=== PATIENT | male | born 1980 | race Caucasian/White ===

== ENCOUNTER 2024-08-18 09:06 | Emergency (ER) | payer OTHER, SELFPAY ==
--- NOTE | ~2024-08-18 | XR_ITS ---
HISTORY: nail bed and left foot COMPARISON: None TECHNIQUE: 3 views of the left foot (with retained foreign body) FINDINGS: No acute fracture or dislocation is appreciated. Trace degenerative disease is noted. Incidental notation is made of os trigonum. Hallux valgus deformity is present, and as such, no acute fracture is present. The base of the fifth metatarsal is intact. No calcaneal spur is noted. Limited evaluation for the presence of soft tissue swelling. IMPRESSION: Hallux valgus deformity resulting in no acute fracture. Retained foreign body within the medial soft tissues of the great toe. Reviewed, dictated and finalized at location A.
[2024-08-18 09:09] VITALS: BP 120/92; PULSE 130; RESP 20; TEMP 36.6; O2SAT 98
--- OUTSIDE RECORDS SUMMARY | 2024-08-18 09:17 | XMS_ITS | Encounter Summary ---
Author Organization [employer] Address 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
--- OUTSIDE RECORDS SUMMARY | 2024-08-18 09:17 | XMS_ITS | Clinical Summary ---
Author Organization [facility] A Address [address] [place] [address] Care Team Providers Care Sliding Joint Maker Name Role Phone Mao Latif MD Primary Care Provider [phone] Allergies No known active allergies Medications No known medications Active Problems Problem Noted Date Diagnosed Date Annual physical exam 10/18/2019 Assessment & Plan (09/14/2023 2:41 PM CDT): Discussed lifestyle modifications, diet and exercise. Routine blood work ordered/reviewed today. Yearly vision and dental examinations. Assessment & Plan (09/09/2022 2:28 PM CDT): Discussed lifestyle modifications, diet and exercise. Routine blood work ordered/reviewed today. Yearly vision and dental examinations. Gastroenteritis 01/12/2015 Overview (05/15/2016): Gastroenteritis Asthma 06/25/2013 Overview (05/15/2016): ASTHMA NOS Immunizations Immunization Administration Dates Next Due Hep A, Adult 04/20/2009,03/13/2008 Influenza, Unspecified 09/14/2023(Deferr ed: Patient Refused),05/08/2022(Deferred: Patient Refused) Surgical History Surgery Date Site/Laterality Comments NO PAST SURGERIES Medical History Medical History Date Comments Asthma Asthma; Comments : SAB 01/12/2015 - Hx Other Medical Sutures on righ t index finger Family History Medical History Relation Name Comments Arrhythmia Father Other Father Alive and well; Throat cancer Maternal Grandmother Cancer -throat; Arrhythmia Mother Other Mother Alive and well; Heart disease Paternal Grandfather Heart disease; Colon cancer Paternal Grandmother Cancer -colon; Relation Name Status Comments Father Alive Maternal Grandmother Mother Alive Paternal Grandfather Paternal Grandmother Social History Tobacco Use Types Packs/Day Years Used Date Smoking Tobacco: Every Day Vaping Tobacco Cessation:Ready to Q uit: Not Asked; Counseling Given: Not Answered Alcohol Use Standard Drinks/Week Comments Yes 0 (1 standard drink = 0.6 oz pur e alcohol) PHQ-2 Answer Date Recorded PHQ-2 Total Score (If total score is 3 or more points, staff should administer the PHQ-9) 0 09/14/2023 Personal Safety Answer Date Recorded Getting School Help Needed Not on file 04/08 Sex and Gender Information Value Date Recorded Sex Assigned at Not on file 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 Gender Identity Not on file Sexual Orientation Not on file Obstetrics History Last Filed Vital Signs Vital Sign Reading Time Taken Comments Blood Pressure 108/88 09/14/2023 2:27 PM CDT Pulse 87 09/14/2023 2:27 PM CDT Temperature 36.9 C (98.5 F) 09/03/2022 4:54 PM CDT Respiratory Rate 16 09/14/2023 2:27 PM CDT Oxygen Saturation 98% 09/14/2023 2:27 PM CDT Inhaled Oxygen Concentration - - Weight 79.5 kg (175 lb 4.8 oz) 09/14/2023 2:27 P M CDT Height 175.3 cm (5' 9.02) 09/14/2023 2:27 PM CD T Body Mass Index 25.88 09/14/2023 2:27 PM CDT Plan of Treatment Health Maintenance Due Date Last Done Comments Hepatitis C Screening 1981 DTaP/Tdap/Td Vaccine (1 - Tdap) 1992 Varicella Vaccines (1 of 2 - 13+ 2-dose series) 1994 Hepatitis B Screening 07/05/1999 Pneumococcal vaccine <65 (1 of 2 - PCV) 2000 Depression Screening 09/13/2024 09/14/2023, 09/09/2022 Regular Well Visit/Exam 18-64 09/13/2024, 09/09/2022 Influenza Vaccine (Season Ended) 2024 HPV Vaccines Aged Out No longer eligi ble based on patient's age to complete this topic Insurance Care Teams Sliding Joint Maker Relationship Specialty Start Date End Date Mao Latif MD [address] [place] [address] [place] [address] PCP - General Family Medicine 09/09/22
--- OUTSIDE RECORDS SUMMARY | 2024-08-18 09:17 | XMS_ITS | Clinical Summary ---
Author Organization [facility] Address [address] [place] [address] Phone Care Team Providers Care Proofer Black And White Name Role Phone Provider, None Primary Care Provider Unavailabl e Allergies No known active allergies Medications No known medications Active Problems No known active problems Social History Tobacco Use Types Packs/Day Years Used Date Smoking Tobacco: Former Smokeless Tobacco: Never Alcohol Use Standard Drinks/Week Comments Yes 0 (1 standard drink = 0.6 oz pur e alcohol) socially Sex and Gender Information Value Date Recorded Sex Assigned at Not on file Legal Sex Male 11:43 AM CDT Gender Identity Not on file Sexual Orientation Not on file Last Filed Vital Signs Vital Sign Reading Time Taken Comments Blood Pressure 121/75 06/14/2018 11:55 AM CDT Pulse 75 06/14/2018 11:55 AM CDT Temperature 37.2 C (98.9 F) 06/14/2018 11:55 AM CDT Respiratory Rate 16 06/14/2018 11:55 AM CDT Oxygen Saturation 98% 06/14/2018 11:55 AM CDT Inhaled Oxygen Concentration - - Weight 77.1 kg (170 lb) 06/14/2018 11:55 AM CDT Height 175.3 cm (5' 9) 06/14/2018 11:55 AM CDT Body Mass Index 25.1 06/14/2018 11:55 AM CDT Plan of Treatment Health Maintenance Due Date Last Done Comments Hepatitis C Virus (HCV) Screening 1981 TdaP Immunization 1981 Human Papillomavirus (HPV) Immunization (1 - Male 3-dose series) 1996 Hepatitis B Immunization (1 of 3 - 19+ 3-dose series) 2000 SARS-COV-2 Immunization ( - ) 10/11/2023 Influenza Immunization (#1) 2024 Respiratory Syncytial Virus (RSV) Immunization (Adult) (1 - 1-dose 75+ series) 2056 Meningococcal Immunization (ACWY) Aged Out No longer eligible based on patient's age to complete this topic Pneumococcal Immunization Combined Aged Out No longer eligible based on patient's age to complete this topic Rotavirus Immunization Aged Out No lo nger eligible based on patient's age to complete this topic Insurance [facility] Care Teams Proofer Black And White Relationship Specialty Start Date End Date Provider, None [place] PCP - General 06/14/18
--- OUTSIDE RECORDS SUMMARY | 2024-08-18 09:17 | XMS_ITS | Encounter Summary ---
Author Organization [employer] Address 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
--- OUTSIDE RECORDS SUMMARY | 2024-08-18 09:17 | XMS_ITS | Clinical Summary ---
Author Organization [facility] [employer] Address [address] [place] [address] Care Team Providers Care Sulky Driver Name Role Phone Dixon Torres MD Primary Care Provider Source Comments [facility] [employer],non-owned Affiliates and Associated Physician Practices is amultiple site organization consisting of ambulatory clinics and hospital sitesin [place], [place], [place] and [place]. This disclosure is being madepursuant to the Care Everywhere program and may not contain all information available regarding this patient. Last updated 17.[facility] [employer] Allergies No known active allergies Medications * Be aware that medications may not be up to date on this document. Alwaysverify current medications with the patient. 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 Gender Identity Not on file Sexual Orientation Not on file Last Filed Vital Signs Vital Sign Reading Time Taken Comments Blood Pressure 110/74 11/16/2015 4:34 PM CDT Pulse 74 11/16/2015 4:34 PM CDT Temperature 36.9 C (98.4 F) 11/16/2015 4:34 PM CDT Respiratory Rate 16 11/16/2015 4:34 PM CDT Oxygen Saturation 98% 11/16/2015 4:34 PM CDT Inhaled Oxygen Concentration - - Weight 74.8 kg (165 lb) 11/16/2015 4:34 PM CDT Height 175.3 cm (5' 9) 11/16/2015 4:34 PM CDT Body Mass Index 24.37 11/16/2015 4:34 PM CDT Plan of Treatment Health Maintenance Due Date Last Done Comments LIPID TESTING 1981 HIV SCREENING 1996 HEPATITIS C SCREENING 06/30/1999 DTAP/TDAP/TD VACCINES (1 - Tdap) 2000 HEPATITIS B VACCINE (1 of 3 - 19+ 3-dose series) 2000 HPV VACCINE (1 - 3-dose SCDM series) 2008 COVID-19 VACCINE (1 - 2023-2 5 season) 2023 DEPRESSION SCREENING 02/10/2024 INFLUENZA VACCINE (#1) 2024 ZOSTER VACCINE (1 of 2) 07/05/2031 HIB VACCINE Aged Out No longer eligi ble based on patient's age to complete this topic MENINGOCOCCAL (Group B) VACC INE SHARED DECISION-MAKING Aged Out No longer eligibl e based on patient's age to complete this topic MENINGOCOCCAL GROUPS A/C/Y/W VACCINE Aged Out No longer eligible b ased on patient's age to complete this topic PNEUMOCOCCAL VACCINE Aged Out No long er eligible based on patient's age to complete this topic Insurance [facility] Care Teams Sulky Driver Relationship Specialty Start Date End Date Dixon Torres MD [address] [place] [address] [address] [place] [address] PCP - General Internal Medicine 11/16/15
--- OUTSIDE RECORDS SUMMARY | 2024-08-18 09:17 | XMS_ITS | Clinical Summary ---
Author Organization [facility] Address [address] [place] [address] Phone Care Team Providers Care Art Framing Manager Name Role Phone Unavailable Primary Care Provider Unavailabl e Allergies No known active allergies Medications HYDROcodone-tatiana taminophen (NORCO) 5-325 mg tabletIndicatio ns:Vasectomy evaluation Take 1 Tablet by mouth every 4 hours as needed for Pain. Max Daily Amount: 6 Tablets 20 Tablet 11/23/2019 Active cephALEXin (KEFLEX) 500 mg capsule Take 1 Capsule (500 mg) by mouth 2 times daily. 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 Gender Identity Not on file Sexual Orientation Not on file Last Filed Vital Signs Vital Sign Reading Time Taken Comments Blood Pressure - - Pulse - - Temperature - - Respiratory Rate - - Oxygen Saturation - - Inhaled Oxygen Concentration - - Weight 77.1 kg (170 lb) 10/18/2019 11:45 AM CDT Height 175.3 cm (5' 9) 10/18/2019 11:45 AM CDT Body Mass Index 25.1 10/18/2019 11:45 AM CDT Plan of Treatment Health Maintenance Due Date Last Done Comments DTAP/TDAP/TD VACCINES (1 - Tdap) 2000 HEPATITIS B VACCINES (1 of 3 - 19+ 3-dose series) 2000 INFLUENZA VACCINE (#1) 2024 HPV VACCINES Aged Out No longer eligi ble based on patient's age to complete this topic Insurance [facility] BLUE ACCESS/TRUE BLUE PPO
--- OUTSIDE RECORDS SUMMARY | 2024-08-18 09:17 | XMS_ITS | Encounter Summary ---
Author Organization [employer] [facility] Address 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
--- OUTSIDE RECORDS SUMMARY | 2024-08-18 09:17 | XMS_ITS | Referral Summary ---
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
[2024-08-18] MEDS: KETOROLAC (*BKC) 60 MG/2 ML VIAL IM (09:21)
[2024-08-18] MEDS: TETANUS,DIPHTHERIA,AC PERTUSSIS ADULT 0.5 ML (ADACEL) IM (09:22)
--- NOTE | 2024-08-18 09:40 | ED.LOWEXIN ---
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 complaint: foot injury Onset (ago): hour(s) Injury: Left: foot ( Nail into his left foot through his shoe) Place: work Severity: moderate Severity scale (1-10): 6 Relieving factors: nothing Related Data Allergies Allergy/AdvReac Type Severity Reaction Status Date / Time No Known Allergies Allergy Verified 08/18/24 09:11 Review of Systems Review of Systems: All systems reviewed & are unremarkable except as noted in HPI and below PMFSH Past Medical History Medical History Patient denies medical problems Exam Const: General: healthy appearing Nutritional Appearance: well nourished Orientation/consciousness: patient oriented x3 Limitations: no limitations Resp: Effort & Inspection: normal respiratory effort Auscultation: clear to auscultation bilaterally Cardio: Rate: regular rate Rhythm: regular rhythm GI: GI Palp: Yes Soft to palpation Auscultation: normal bowel sounds Skin: Wounds: wounds noted Other: nail imbedded through his left foot through issue Neuro: General: patient oriented x3 and moves all extremities Extrem: Other: nail into his left foot through issue Course Course Emergency Course: patient had x-ray performed and the nail is imbedded in a flash his medial left foot, tetanus was updated patient received 60mg IM Toradol cough, 1g IM ceftriaxone. Vital Signs Vital signs: Vital Signs Temperature 36.6 C 08/18/24 09:09 Pulse Rate 130 H 08/18/24 09:09 Respiratory Rate 20 08/18/24 09:09 Blood Pressure 120/92 H 08/18/24 09:09 Pulse Oximetry 98 08/18/24 09:09 Oxygen Delivery Room Air 08/18/24 09:09 Temperature 36.6 C 08/18/24 10:32 Pulse Rate 91 08/18/24 10:32 Respiratory Rate 18 08/18/24 10:32 Blood Pressure 114/97 H 08/18/24 10:32 Pulse Oximetry 98 08/18/24 10:32 Oxygen Delivery Room Air 08/18/24 10:32 Critical Care Time Critical Care Time Critical Care Time: No Discharge Plan Discharge Clinical Impression: Foreign body (FB) in soft tissue Patient Disposition: Home Condition: Stable Instructions: Antibiotic Form, Soft Tissue Foreign Body (ED), Puncture Wound (ED) Additional Instructions: advised patient to take medication as prescribed and to follow with primary within 1 week for further evaluation and treatment. Patient Language: Portuguese Prescriptions: New amoxicillin-pot clavulanate [Augmentin] 500-125 mg tablet 1 tablet PO TID Qty: 30 0RF naproxen 500 mg tablet 500 mg PO BID PRN (Reason: pain) Qty: 14 0RF Follow-up/Referrals: UNKNOWN,DOCTOR [Non-Staff] - Stand Alone Forms: Work/School Release IP Time of Disposition: 10:25
[2024-08-18] MEDS: cefTRIAXone 1 GM, LIDOCAINE 1% LOCAL INJ 2.1 ML IM (09:58)
--- NOTE | 2024-08-18 10:00 | PC.NURSE ---
bandage applied to wound
[2024-08-18 10:25] VITALS: BP 114/97; PULSE 91; RESP 18; TEMP 36.4; O2SAT 98
--- OUTSIDE RECORDS SUMMARY | 2024-08-18 10:28 | XMS_ITS | Clinical Summary ---
Author Organization [facility] Address [address] [place] [address] Phone Care Team Providers Care Double End Production Grinder Name Role Phone Provider, None Primary Care [...] patient's age to complete this topic Insurance [employer] Care Teams Double End Production Grinder Relationship Specialty Start Date End Date Provider, None [place] PCP - General 06/14/18
--- OUTSIDE RECORDS SUMMARY | 2024-08-18 10:28 | XMS_ITS | Encounter Summary ---
Author Organization [employer] Address 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
--- OUTSIDE RECORDS SUMMARY | 2024-08-18 10:28 | XMS_ITS | Encounter Summary ---
Author Organization [email or web address] Address [address] [place] [address] Care Team Providers Care Dining Room Tables Set Up Attendant Name Role Phone Unavailable Primary Care Provider Unavailabl e Encounter Details Date Type Department Care Team (Late st Contact Info) Description 06/12/2008 Outpatient Historical HIS 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
--- OUTSIDE RECORDS SUMMARY | 2024-08-18 10:29 | XMS_ITS | Encounter Summary ---
Author Organization [employer] Address 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
--- OUTSIDE RECORDS SUMMARY | 2024-08-18 10:29 | XMS_ITS | Clinical Summary ---
Author Organization [facility] Medical [facility] A Address [address] [place] [address] Care Team Providers Care Air Tank Assembler Name Role Phone Mao Latif MD Primary Care Provider [phone] Allergies No known active allergies Medications No [...] on file Legal Sex Male 11:53 PM LIBRARY CIRCULATION CLERK Gender Identity Not on file Sexual Orientation [...] patient's age to complete this topic Insurance [facility]PP[facility] Address: [address] [address] [place] [address] [facility] Address: [address] [address] [place] [address] Care Teams Air Tank Assembler Relationship Specialty Start Date End Date Mao Latif MD [address] [place] [address] [place] [address] PCP - General Family Medicine 09/09/22
--- OUTSIDE RECORDS SUMMARY | 2024-08-18 10:29 | XMS_ITS | Referral Summary ---
Author Organization [facility] Medical Office Building A Address [address] [place] [address] Care Team Providers Care Resident Athletic Trainer Name Role Phone Mao Latif MD Primary Care Provider [phone] Allergies No known active allergies Medications No [...] on file Legal Sex Male 11:53 PM CARDIAC CATHETERIZATION TECHNOLOGIST Gender Identity Not on file Sexual Orientation [...] Plan of Treatment Not on file Insurance Care Teams Resident Athletic Trainer Relationship Specialty Start Date End Date Mao Latif MD 2 [facility] [address] [address] PCP - General Family Medicine 09/09/22
--- OUTSIDE RECORDS SUMMARY | 2024-08-18 10:29 | XMS_ITS | Clinical Summary ---
Author Organization [facility] [employer] Address [address] [place] [address] Care Team Providers Care Route Supervisor Name Role Phone Dixon Torres MD Primary Care Provider Source Comments [facility] [employer],non-owned Affiliates and Associated Physician Practices is amultiple site organization consisting of ambulatory clinics and hospital sitesin [place], [place], [place] and [place]. This disclosure is being madepursuant to the Care Everywhere program and may not contain all information available regarding this patient. Last updated 17.[facility] [employer] Allergies No known active allergies Medications * Be aware that medications may not be up to date on this document. Alwaysverify current medications with the patient. No known medications Social History Tobacco Use Types Packs/Day Years Used Date Smoking Tobacco: Never Assessed Sex and Gender Information Value Date Recorded Sex Assigned at Not on file Legal Sex Male 5:32 AM MANUAL ARTS THERAPY TEACHER Gender Identity Not on file Sexual Orientation [...] patient's age to complete this topic Insurance [facility] Care Teams Route Supervisor Relationship Specialty Start Date End Date Dixon Torres MD [address] [place] [address] [address] [place] [address] PCP - General Internal Medicine 11/16/15
--- OUTSIDE RECORDS SUMMARY | 2024-08-18 10:29 | XMS_ITS | Clinical Summary ---
Author Organization [facility] Address [address] [place] 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
[2024-08-18 10:32] VITALS: BP 114/97; PULSE 91; RESP 18; TEMP 36.6; O2SAT 98
== END 2024-08-18 10:32 | disposition home or self-care (01) ==
LOC: CHSED 10:26
PROVIDERS: Emergency Provider Emergency Medicine; Referring Provider Family Medicine
DX: S91.342A Puncture wound with foreign body, left foot, initial encounter (principal); W45.0XXA Nail entering through skin, initial encounter; Z23 Encounter for immunization
CPT/HCPCS: 73630; 90471; 90715; 96372; 99284; J0696; J1885; J2003